=== PATIENT | male | born 2005 | race African-American/Black ===

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

== ENCOUNTER 2025-01-29 14:27 | Outpatient (CLI) | payer OTHER, SELFPAY | END 2025-01-29 14:28 | disposition home or self-care (01) | PROVIDERS: Visit Provider Family Medicine | DX: F32.9 Major depressive disorder, single episode, unspecified (principal); F90.9 Attention-deficit hyperactivity disorder, unspecified type; Z13.6 Encounter for screening for cardiovascular disorders; Z13.1 Encounter for screening for diabetes mellitus | CPT/HCPCS: 80053; 80061; 82306; 82607; 82728; 84436; 84439; 84443 ==

== ENCOUNTER 2025-04-09 08:46 | Outpatient (CLI) | payer OTHER, SELFPAY ==
--- NOTE | 2025-04-09 09:15 | CRLHL7_ITS ---
For Patients: As a result of the Century Cures Act, medical imaging exams and procedure reports are released immediately into your electronic medical record. You may view this report before your referring provider. If you have questions, please contact your health care provider. Indication: Mental status change. Technique: Noncontrast sagittal T1, axial FLAIR, T2, diffusion weighted sequences are provided. No comparisons. Findings: The ventricles, sulci and gyri are normal size, shape and contour for age. The midline structures are centrally located with no evidence of shift. There are no suspicious intra or extra-axial fluid collections. No region of restricted diffusion. Expected flow voids in the cavernous carotids and basilar artery. Right maxillary sinus mucous retention cyst or polyp. Impression: 1. No radiographic evidence of acute intracranial abnormalities. Dictated by Warren Garcia MD @ 04/09/2025 10:23:17 AM (Electronically Signed)
== END 2025-04-09 08:47 | disposition home or self-care (01) ==
PROVIDERS: Visit Provider Nurse Practitioner Family
DX: F90.1 Attention-deficit hyperactivity disorder, predominantly hyperactive type (principal)
CPT/HCPCS: 70551